=== PATIENT | male | born 1945 | race Caucasian/White ===

== ENCOUNTER → 2020-07-04 | Outpatient (CLI) | payer MEDICARE ==
[~2020-07-04] MED LIST: ALBU18HF INH; BUDE10.2 INH; CETI5TAB5 PO; CLON0.5T20 PO; CYAN500011 PO; DOFE500C PO; LISI5TAB7 PO; MAGN400T36 PO; METR250T18 PO; MYCO360T3 PO; NIFE20CA PO; PANT40TA6 PO; PRAM0.255 PO; PRED5TAB PO; RIVA20TA PO; SELE PO; SILD20TA PO; SPIR25TA5 PO; TRAM100T33 PO; vit d3 PO
== END | disposition home or self-care (01) ==
LOC: CFH 10:52
PROVIDERS: ATTEND Internal Medicine Cardiovascular Disease
DX: I08.2 Rheumatic disorders of both aortic and tricuspid valves (principal); I48.0 Paroxysmal atrial fibrillation; I27.20 Pulmonary hypertension, unspecified
CPT/HCPCS: 93306

== ENCOUNTER 2020-07-10 08:00 | Outpatient (CLI) | payer MEDICARE ==
[~2020-07-10] VITALS: Ht 167.6 cm; Wt 72.7 kg
[2020-07-10] MEDS ORDERED: MACI10TA PO (11:28)
[2020-07-10] MEDS ORDERED: MYCO360T3 PO (11:28)
[2020-07-10] MEDS ORDERED: DIGO125T85 PO (11:30)
[2020-07-10 12:18] LABS: ALBUMIN 4.1 g/dL (3.4-5.0); ANION GAP 3 mmol/L (5-15); CALCIUM 8.8 mg/dL (8.5-10.1); CHLORIDE 107 mmol/L (98-107)
[2020-07-10 12:21] LABS: ALANINE AMINOTRANSFERASE 18 U/L (12-78); ALKALINE PHOSPHATASE 77 U/L (45-117); BILIRUBIN,TOTAL 0.7 mg/dL (0.2-1.0); CREATININE 1.11 mg/dL (0.7-1.3); TOTAL PROTEIN 7.5 g/dL (6.4-8.2)
== END 2020-07-10 23:59 | disposition home or self-care (01) ==
LOC: STAR 08:00 → EDSTATUS 07-12 09:45
PROVIDERS: ATTEND Orthopaedic Surgery Hand Surgery
DX: Z01.818 Encounter for other preprocedural examination (principal); G56.01 Carpal tunnel syndrome, right upper limb; Z20.828 Contact with and (suspected) exposure to other viral communicable diseases; Z79.899 Other long term (current) drug therapy; Z72.89 Other problems related to lifestyle; Z87.891 Personal history of nicotine dependence; Z98.890 Other specified postprocedural states
CPT/HCPCS: 36415; 80053; 87635; 93005